=== PATIENT | female | born 1955 | race Hispanic/Latino ===

== ENCOUNTER → 2019-05-16 | Day surgery (SDC) | payer OTHER ==
[~2019-05-16] MED LIST: FENTANYL CITRATE/PF 100MCG/2 ML INJ ONE; HYOSCYAMINE 0.125 MG TAB ONE; MIDAZOLAM HCL 2 MG/2 ML VIAL ONE; OMEGA 3 FISH O1 EACH PO; PROPOFOL IV EMULSION 10 MG/ML 50 ML VIAL ONE
[2019-05-16 14:50] VITALS: BP 120/71
--- NOTE | 2019-05-16 15:35 | Operative Report ---
DATE OF PROCEDURE: 05/16/2019 SURGEON: Obed Dennis MD PROCEDURE: Esophagogastroduodenoscopy with biopsies and colonoscopy with biopsies. INDICATIONS FOR EGD: Heartburn, bloating. INDICATIONS FOR COLONOSCOPY: Colorectal cancer screening. MEDICATIONS: The patient was done under MAC, please see anesthesiologist's note. PROCEDURE IN DETAIL: With the patient in left lateral decubitus position, a flexible fiberoptic Olympus gastroscope was introduced into the esophagus under direct visualization without any difficulty. There was some patchy erythema noted in distal esophagus. The scope was then advanced with ease into the stomach. Mucosa overlying the antrum and the body revealed some patchy erythema, low-grade to moderate edema and biopsies were obtained, sent to stain for H pylori. The pylorus was of normal contour and shape, it was intubated with ease and the scope was advanced all the way to the second portion of the duodenum. The scope was then withdrawn slowly and biopsies were obtained from the proximal second portion and the duodenal bulb to rule out sprue. The scope was then withdrawn back into the stomach and retroflexed and mucosa overlying the fundus and the cardia appeared to be within normal limits. The scope was then straightened out, it was subsequently withdrawn. The patient tolerated the procedure well. IMPRESSION: 1. Distal esophagitis, mild. 2. Gastritis, biopsied. Biopsies sent to stain for Helicobacter pylori. 3. Rule out sprue. PLAN: Follow up histology. Initiate Protonix 40 mg one p.o. q.a.m. a.c. PROCEDURE IN DETAIL: The patient was then turned around after adequate lubrication of the anal canal. A flexible fiberoptic Olympus colonoscope was inserted into the rectum with ease and advanced all the way to the cecum. It was then withdrawn slowly. Mucosa overlying the cecum, ascending colon, transverse colon grossly appeared to be within normal limits. Some minimal diverticulosis was noted in the proximal ascending colon. There was some mild patchy inflammatory changes noted in the left colon. Biopsies were obtained. Also some minimal diverticulosis was noted in the sigmoid colon. The scope was then retroflexed into the distal rectum and small internal hemorrhoids were noted, none of which was actively bleeding. The scope was then straightened out, it was subsequently withdrawn. The patient tolerated the procedure well. IMPRESSION: 1. Mild patchy inflammatory changes, left colon. 2. Diverticulosis. 3. Internal hemorrhoids, none actively bleeding. PLAN: Follow up histology. Initiate high-fiber, low-fat diet. Initiate high-fiber supplement. Start VSL#3 one p.o. daily. MD ZULMA Simental/MODL /[id number] cc: Saray Pinto NP
== END | disposition home or self-care (01) ==
LOC: OR 10:40
PROVIDERS: ATTEND Internal Medicine Gastroenterology
DX: K29.70 Gastritis, unspecified, without bleeding (principal); K20.9 Esophagitis, unspecified; K63.89 Other specified diseases of intestine; K57.30 Diverticulosis of large intestine without perforation or abscess without bleeding; K64.8 Other hemorrhoids; K21.9 Gastro-esophageal reflux disease without esophagitis; K59.09 Other constipation; R03.0 Elevated blood-pressure reading, without diagnosis of hypertension; F41.9 Anxiety disorder, unspecified; Z01.810 Encounter for preprocedural cardiovascular examination
CPT/HCPCS: 43239; 45378; 45380; 93005; J2250; J3010